=== PATIENT | male | born 1945 | race Caucasian/White ===

== ENCOUNTER 2017-04-13 08:48 | Day surgery (SDC) | payer MEDICARE, BC ==
[2017-04-11 12:30] LABS: BASOPHILS 0.5 %; BASOPHILS ABSOLUTE 0.03 10/3/uL (0.0-0.16); EOSINOPHILS 2.8 %; EOSINOPHILS ABSOLUTE 0.16 10/3/uL (0.0-0.53); HEMATOCRIT 42.3 % (40.0-51.0); HEMOGLOBIN 14.1 g/dL (13.6-17.8); IMMATURE GRANULOCYTES 0.2 %; IMMATURE GRANULOCYTES ABSOLUTE 0.01 10/3/uL (0.0-0.11); LYMPHOCYTES 42.7 %; MANUAL DIFF NO %; MEAN CORPUS HGB CONC 33.3 g/dL (32.0-36.0); MEAN CORPUSCULAR VOLUME 84.1 fL (80-100); MEAN PLATELET VOLUME 10.4 fL (9.2-13.0); MONOCYTES 8.9 %; NEUTROPHILS 44.9 %; NEUTROPHILS ABSOLUTE 2.52 10/3/uL (2.02-8.40); PLATELET COUNT 139 10/3/uL (150-400); RBC DISTRIBUTION WIDTH 13.9 % (12.0-16.0); RED CELL COUNT 5.03 10/6/uL (4.7-6.1); WHITE BLOOD CELLS 5.6 10/3/uL (4.5-10.5)
[2017-04-11 12:41] LABS: PARTIAL THROMBO TIME 24.1 SEC (22.5-37.2); PROTIME (NOT ORD) 13.4 SEC (12.0-14.5)
[2017-04-11 12:49] LABS: A/G RATIO 1.4 (0.7-1.9); ALBUMIN 3.8 G/DL (3.5-5.0); CALCIUM, SERUM 9.5 MG/DL (8.5-10.4); CHLORIDE, SERUM 103 MMOL/L (96-112); CREATININE 0.95 MG/DL (0.70-1.30); GFR AFRICAN AMERICAN 92 ML/MIN (>=60); GFR NON AFRICAN AMERICAN 80 ML/MIN (>=60); GLOBULIN 2.8 G/DL (2.5-4.1); GLUCOSE, SERUM 162 MG/DL (60-99); POTASSIUM, SERUM 4.3 MMOL/L (3.5-5.3); SGOT(AST) 19 U/L (5-40); SGPT(ALT) 27 U/L (5-65); SODIUM, SERUM 139 MMOL/L (135-148); TOTAL PROTEIN 6.6 G/DL (6.0-8.5)
[2017-04-11 12:52] LABS: ALKALINE PHOSPHATASE 73 U/L (45-117); BUN (BLOOD UREA NITROGEN) 16 MG/DL (6-23); CO2 (CARBON DIOXIDE) 29 MMOL/L (24-34); TOTAL BILIRUBIN 0.7 MG/DL (0-1.2)
[~2017-04-13] VITALS: Ht 172.7 cm; Wt 85.7 kg
--- NOTE | ~2017-04-13 | OP ---
Record Of Operation [facility] [address] [place]. [address] NAME: DELICIA PEREZ : 43 STATUS : [facility]#: [id number] AGE: 71 ADM/REG DATE : 04/13/17 MR#: [id number] REPORT SERV DATE: 04/13/17 DICTATED BY: RONI CHA III. DATE: 04/13/17 REPORT STATUS : Draft TRANSCRIBED BY: MODL DATE: 04/13/17 DATE OF PROCEDURE: 04/13/2017 PREOPERATIVE DIAGNOSES: Probable biliary pancreatitis in a patient with known gallstones and a history of severe episode of pancreatitis necessitating admission to the hospital two to three weeks ago. The patient cleared, but continues to have some elevated amylase and lipase levels even the day before this dictation. Followup after the cholecystectomy in the office has been discussed with the and need for potential EGD discussed. POSTOPERATIVE DIAGNOSIS: Cholelithiasis with minimal evidence of any acute cholecystitis. SURGEON: Semaj Liu MD FACS. LOAN EXAMINER: Effie Cha RN, [facility]. ANESTHESIA: General with endotracheal tube supplemented with 0.5% Marcaine with epinephrine and injected by this physician to block the sixth and seventh intercostal nerves on the right side to locally provide postop relief. The procedure went as follows. DESCRIPTION OF PROCEDURE: A time-out was called in full agreement with the staff about procedure, allergies, and instrumentation needed. There was no disagreement. The patient was prepped and draped in routine fashion with adequate general anesthesia. The area of the abdomen approached through an infraumbilical curvilinear incision and open trocar technique used to place a balloon port of 12 mm size into the peritoneal cavity under direct visualization. The balloon was inflated. The abdominal cavity insufflated to 15 mmHg pressure with carbon dioxide gas. The 0-degree angle operative telescope placed in peritoneal cavity. Internal exam performed showing fairly normal appearing bowel with a small hemangioma on the ascending colon and a significant left inguinal hernia noted on the laparoscopic view in the pelvis. The urinary bladder appeared to be unremarkable as was the remainder of the small bowel. Abdomen was entered through the falciform ligament with another 10 mm trocar, one 5 mm trocar placed in the right lateral abdomen. The gallbladder was retracted superiorly and anteriorly and dissection in the area of the cystic duct carried out. The cystic duct was skeletonized in 360 degree level and traced back into the infundibulum of the gallbladder without evidence of any other ductal structures around it. Cystic artery was similarly skeletonized. A titanium clip was placed on the infundibular side of the cystic duct and three titanium clips placed on the cystic artery, but it was not divided at this point. I percutaneously introduced Arrow catheter that was placed through a small incision in the anterior aspect of this extremely small 1 mm cystic duct, which was dilated to allow the entry of the Arrow catheter balloon tip. The catheter was held in place with partially collapsed titanium clip. Real-time C-arm cholangiography then obtained. Record Of Operation [facility] [address] [place]. [address] NAME: DELICIA PEREZ : 43 STATUS : [facility]#: [id number] AGE: 71 ADM/REG DATE : 04/13/17 MR#: [id number] REPORT SERV DATE: 04/13/17 DICTATED BY: RONI CHA III DATE: 04/13/17 REPORT STATUS : Draft TRANSCRIBED BY: LUCIANA DATE: 04/13/17 Good flow into the duodenum, good flow into the hepatic radicles were obtained with the 50% Hypaque or Omnipaque solution showing good flow into the duodenum, good flow in the hepatic radicles without impedance flow or filling defects or sensory ducts. There was no extravasation. After this had been determined without reflux into this pancreatic duct, the Arrow catheter was removed, and three titanium clips placed on the cystic duct stump. After this was done, the cystic duct was completely transected and the cystic artery transected. Retrograde dissection of the gallbladder carried out using cautery current as well as some clips on some venous and smaller arterial structures and the infundibular aspect of the gallbladder, which was tightly fused into the gallbladder bed. Sweeping motions were used to cauterize and separate the gallbladder from its bed, but several areas of liver were removed with the gallbladder removal due to it's fusion. After the gallbladder came in completely , hemostasis was achieved with the cautery and Surgiflo injected into the gallbladder fossa for more assistance with any oozing that might occur. The gallbladder was then removed through the infraumbilical incision and opened on the back table. A 15 mm Emanuel-Morris drain was then placed through the right lateral 5 mm trocar site and carefully positioned and Morison's pouch right beneath the gallbladder fossa. This drain was secured to the skin with 2-0 Prolene. After this was done, all trocars were removed under video observation. The infraumbilical trocar site was closed with [id number] sutures of 0 Vicryl and the subcutaneous and skin closed at the other two both of the 10 and the 12 mm trocar sites with interrupted 3-0 Vicryl and Dermabond applied. A Biopatch was applied to the drain and Band-Aids utilized over the small trocar sites. Estimated blood loss 20 mL. There were no complications. The patient tolerated the procedure well. The procedure was a laparoscopic cholecystectomy with intraoperative cholangiogram, followed by the block of the right costal margin sixth and seventh intercostal nerves and rectus muscle nerves with 30 mL 0.5% Marcaine with epinephrine. The procedure was concluded and the patient was sent to the postanesthesia care unit in good condition. DO/LUCIANA Roni Cha III, M.D. / [id number] CC: Paige Harris III, Jr., D.O.
[~2017-04-13 08:48] MED LIST: ACTOS30 PO; AMARYL4 PO; ASAB PO; BYDUREON2 MG SQ; COREG3 PO; COREG6 PO; DIGITEK0.25 MG PO; EFFIENT10 PO; FORTAMET1000 MG PO; GLUCOPHAGE1000 MG PO; GLUCOPHXR7 PO; HALF81 PO; LAN25 PO; LIPITOR20 PO; NITROSTAT0.4 MG SL; ONGLYZA5 MG PO; PREV30 PO; PRIN2.5 PO; VOLT75 PO; X5 PO; ZOCOR40 PO
== END 2017-04-13 16:42 | disposition home or self-care (01) ==
LOC: SDC 08:48
PROVIDERS: Surgery
PROC: BF13YZZ Fluoroscopy of Gallbladder and Bile Ducts using Other Contrast (ICD-10-PCS; 2017-04-13)
PROC: 0FT44ZZ Resection of Gallbladder, Percutaneous Endoscopic Approach (ICD-10-PCS; principal; 2017-04-13 09:45)
DX: K80.10 Calculus of gallbladder with chronic cholecystitis without obstruction (principal); I25.10 Atherosclerotic heart disease of native coronary artery without angina pectoris; I11.0 Hypertensive heart disease with heart failure; I50.9 Heart failure, unspecified; E11.9 Type 2 diabetes mellitus without complications; E78.00 Pure hypercholesterolemia, unspecified; K44.9 Diaphragmatic hernia without obstruction or gangrene; R42 Dizziness and giddiness; Z95.5 Presence of coronary angioplasty implant and graft; Z95.0 Presence of cardiac pacemaker; Z79.84 Long term (current) use of oral hypoglycemic drugs; Z79.899 Other long term (current) drug therapy; Z87.891 Personal history of nicotine dependence; Z98.890 Other specified postprocedural states
CPT/HCPCS: 74300; 80053; 82150; 82962; 83690; 85025; 85610; 85730; 88304; A9270-GY; J0690; J1170; J2175; J2405; J2710; J3010; Q9967